=== PATIENT | male | born 1965 | race Caucasian/White ===

== ENCOUNTER 2021-09-18 11:21 | Emergency (ER) | payer OTHER ==
[~2021-09-18] VITALS: Ht 1 cm; Wt 104.0 kg
[2021-09-18 11:54] LABS: BASOPHIL 0.9 % (0-2); EOSINOPHIL 3.9 % (0-5); HCT 44.1 % (42.0-52.0); HGB 15.5 g/dl (13.2-18.0); LYMPHOCYTE 32.9 % (15-48); MCH 32.2 pg (25.0-31.0); MCHC 35.1 g/dL (32.0-36.0); MCV 91.7 fL (78.0-100.0); MONOCYTE 13.2 % (0-12); NEUTROPHIL 48.7 % (41-80); NRBC 0; PLT 229 K/uL (150-400); RBC 4.81 M/uL (4.70-6.00); RDW 13.1 % (11.5-14.0); WBC 7.7 K/uL (4.0-10.5)
[2021-09-18 12:11] LABS: INR 0.94 (0.9-1.2); PROTHROMBIN TIME 12.3 SECONDS (11.9-13.9); PTT 25.3 SECONDS (24.9-34.6)
[2021-09-18 12:21] LABS: ALBUMIN 3.9 g/dL (3.4-5.0); BILIRUBIN - TOTAL 0.6 mg/dL (0.2-1.0); BUN/CREAT RATIO (CALC) 19.2 RATIO; CREATININE 0.78 mg/dL (0.67-1.17); GLOBULIN (CALCULATION) 3.3 g/dL; POTASSIUM 3.3 mmol/L (3.5-5.1); TOTAL PROTEIN 7.2 g/dL (6.4-8.2)
== END 2021-09-18 17:16 | disposition other institution (70) ==
LOC: FER 11:21
PROVIDERS: Emergency Medicine
DX: I25.110 Atherosclerotic heart disease of native coronary artery with unstable angina pectoris (principal); I21.4 Non-ST elevation (NSTEMI) myocardial infarction; I10 Essential (primary) hypertension; F17.200 Nicotine dependence, unspecified, uncomplicated; E78.5 Hyperlipidemia, unspecified; E66.9 Obesity, unspecified; Z20.822 Contact with and (suspected) exposure to COVID-19; Z95.1 Presence of aortocoronary bypass graft; Z79.899 Other long term (current) drug therapy
CPT/HCPCS: 36415; 71045; 80053; 83880; 84484; 85025; 85610; 85730; 93005; J1644; U0002